=== PATIENT | female | born 2000 | race Caucasian/White ===

== ENCOUNTER 2021-06-02 11:42 | Emergency (ER) | payer OTHER, SELFPAY ==
--- NOTE | ~2021-06-02 | XR_ITS ---
EXAMINATION: XR chest 2V EXAM DATE: 06/02/2021 12:38 INDICATION: Heart palpitations. TECHNIQUE: Frontal and lateral projections of the chest obtained and reviewed. There is no prior linda dy for comparison. FINDINGS: The lungs are clear. There are no pleural effusions. The cardiomediastinal silhouette is within normal limits. There is no pneumothorax suspected. The bones and soft tissues are unremarkab le. Mild thoracic dextroscoliosis. IMPRESSION: No acute cardiopulmonary findings. Reviewed, dictated and finalized at location A.
[2021-06-02 11:44] VITALS: BP 152/100; PULSE 107; RESP 14; TEMP 37.2; O2SAT 100
--- NOTE | 2021-06-02 11:47 | ECG_ITS ---
Measurements Intervals [place] Rate: 92 P: 52 WA: 128 QRS: 86 QRSD: 89 T: 34 QT: 368 QTc: 456 Interpretive Statements SINUS RHYTHM WITH OCCASIONAL VENTRICULAR PREMATURE COMPLEXES LEFT ATRIAL ENLARGEMENT Electronically Signed On 06-02-2021 15:52:21 CDT by Emiliano White M.D.
[2021-06-02 12:13] LABS: Basophils Absolute Auto 0.1 K/mm3 (0.0-0.1); Basophils Percent Auto 1.2 % (0.2-1.2); Eosinophils Absolute Auto 0.1 K/mm3 (0-0.3); Eosinophils Percent Auto 1.6 % (0-4.4); Hematocrit 45.6 % (37.0-47.0); Hemoglobin 15.8 g/dL (12.0-15.0); Immature Granulocyte Absolute 0.01 K/mm3 (0.00-0.031); Immature Granulocyte Percent A 0.2 % (0-0.5); Lymphocytes Percent Auto 35.4 % (18.3-44.2); Mean Corpuscular HGB Conc 34.6 g/dl (32-36); Mean Corpuscular Hemoglobin 29.8 pg (26-34); Mean Corpuscular Volume 85.9 fl (80-100); Mean Platelet Volume 9.7 fl (7.4-10.4); Monocytes Absolute Auto 0.5 K/mm3 (0.1-0.6); Monocytes Percent Auto 9.1 % (2.6-8.5); Neutrophils Absolute Auto 2.7 K/mm3 (1.3-6.7); Neutrophils Percent Auto 52.5 % (45.5-73.1); Platelet Count Result 267 k/mm3 (150-375); Red Blood Count 5.31 M/mm3 (4.2-5.4); Red Cell Distribution Width 12.5 % (11.5-14.5); White Blood Count 5.1 K/mm3 (4.5-10.0)
[2021-06-02 12:23] LABS: Alanine Aminotransferase 19 U/L (4-35); Albumin Level 4.5 g/dL (3.7-5.6); Alkaline Phosphatase 58 U/L (45-116); Anion Gap 6 mmol/L (8-16); Aspartate Amino Transferase 29 U/L (14-36); Bilirubin,Total 0.7 mg/dL (0.2-1.3); Blood Urea Nitrogen 12 mg/dL (8-21); Calcium 9.2 mg/dL (8.9-10.7); Carbon Dioxide 25 mmol/L (22-30); Chloride 104 mmol/L (98-107); Estimated CRCL calculation 100 ml/min; Estimated Glomerular Filt Rate > 60; Glucose 88 mg/dL (65-110); Sodium 135 mmol/L (134-143)
[2021-06-02 12:35] LABS: Troponin I < 0.012 ng/mL (0.000-0.034)
[2021-06-02] MEDS: SODIUM CHLORIDE 0.9% IV 1,000 ML 999 ML IV CONT (12:46)
[2021-06-02 13:24] VITALS: BP 111/70; PULSE 87; RESP 18; O2SAT 100
--- NOTE | 2021-06-02 13:41 | ED.ARRPALP ---
HPI - Arrhythmia/Palpitations General Chief Complaint: Arrhythmia/Palpitations Stated Complaint: feeling palpitations Time Seen by Provider: 06/02/21 12:02 Source: patient, family and RN notes reviewed Mode of arrival: ambulatory Limitations: no limitations History of Present Illness HPI narrative: This is a 20 year old female with history of SVT who presents for evaluation of palpitations. Patient is complaining of heart fluttering today. She feels symptoms for a brief second and then it resolves. She denies associated chest pain, shortness of breath, dizziness, diaphoresis, nausea, vomiting, cough or fever. She denies signs of DVT. She denies drinking caffeine or stimulants. She also denies exertional symptoms. Related Data Allergies Allergy/AdvReac Type Severity Reaction Status Date / Time No Known Allergies Allergy Verified 06/02/21 11:50 Review of Systems Review of Systems: All systems reviewed & are unremarkable except as noted in HPI and below Constitutional: Constitutional: Denies chills, Denies fever(s) and Denies weakness ENT: Denies dizziness Cardiovascular: Cardiovascular: Denies chest pain, Denies radiating jaw, neck or arm pain and Denies slow heart rate Respiratory: Respiratory: Denies cough, Denies dyspnea and Denies wheezing Gastrointestinal: Gastrointestinal: Denies abdominal pain, Denies diarrhea, Denies nausea and Denies vomiting PMFSH Past Medical History Medical History Anxiety Surgical History Surgical History History of third molar tooth extraction Family History Family History Father Diabetes mellitus Mother Thyroid disease Grandparent Heart disease Cancer Grandparent Breast cancer Social History Social History Smoking status: Never smoker Alcohol intake: never Substance use: never Exam Narrative: GENERAL: Well-appearing, well-nourished, and in no acute distress. HEAD: Normocephalic, atraumatic EYES: PERRLA and EOMI, conjunctiva clear without discharge EARS: TM's clear bilaterally without erythema or dullness NOSE: Nares clear, no rhinorrhea or epistaxis THROAT:Mucous membranes moist, Oropharynx normal without erythema, exudate, peritonsillar swelling or fluctuance NECK: Supple, without lymphadenopathy or mass RESPIRATORY: No respiratory distress, Airway patent, Respirations non-labored, Clear to auscultation without rales, rhonchi or wheeze HEART: Regular rate and rhythm. No murmur heard. Normal peripheral pulses. ABDOMEN: Soft, nontender, nondistended, normal active bowel sounds. No masses. No rebound or guarding, No organomegaly. EXTREMITIES: No edema, normal strength with full range of motion. SKIN: Warm, dry, normal color without rash NEURO: Alert and oriented x3. CN 2-12 grossly intact. No focal deficits. PSYCH: Normal mood and affect. Course Reevaluation(s) Reevaluation #1: I Discussed with patient and father labs are unremarkable. She will get holter monitor placed in ER and follow up with DR. Rodgers. Patient is having PVCs that are causing her palpitations. She appears otherwise stable. I spoke with Dr. Rodgers who agrees to follow up with patient. Date: 06/02/21 Time: 13:58 Vital Signs Vital signs: Vital Signs Temperature 98.9 F 06/02/21 11:44 Pulse Rate 107 H 06/02/21 11:44 Respiratory Rate 14 06/02/21 11:44 Blood Pressure 152/100 H 06/02/21 11:44 Pulse Oximetry 100 06/02/21 11:44 Temperature 98.9 F 06/02/21 11:44 Pulse Rate 104 H 06/02/21 15:00 Respiratory Rate 20 06/02/21 15:00 Blood Pressure 120/67 06/02/21 15:00 Pulse Oximetry 99 06/02/21 15:00 MDM - Arrhythmia/Palpitations Differential Diagnosis Differential diagnosis: Likely palpitations, an
--- NOTE | 2021-06-02 14:38 | PC.NURSE ---
1438-CALLED TO CARDIOLOGY X 5 EXTENSIONS WITH NO ANSWER. LEFT THREE MESSAGES. UPDATE TO PROVIDER.
[2021-06-02 15:00] VITALS: BP 120/67; PULSE 104; RESP 20; O2SAT 99
--- NOTE | 2021-06-06 12:32 | WPDHOLTEREM ---
Holter/Event Monitor Holter/Event Monitor Date of procedure: 06/02/21 Holter/Event Procedure: 48 Hr Holter Monitor Indications: Palpitations Conclusion: 1. 48 hour hour holter monitor on 06/02/21. 2. Underlying rhythm is sinus rhythm. HR range 53-158 bpm; average HR 82 bpm. 3. There are 5 premature supraventricular complexes. No supraventricular tachycardia. 4. There are 1,899 premature ventricular complexes and 3 ventricular trigeminy. No ventricular tachycardia. 5. No sinoatrial or atrioventricular blocks. No significant pauses greater than 2 seconds. 6. No symptoms available for correlation.
== END 2021-06-02 15:10 | disposition home or self-care (01) ==
PROVIDERS: Emergency Medicine; Emergency Provider General Practice; PCP Physician Assistant
DX: R00.2 Palpitations (principal); I49.3 Ventricular premature depolarization; F41.9 Anxiety disorder, unspecified
CPT/HCPCS: 36415; 71046; 80053; 83735; 84443; 84484; 85025; 93005; 93225; 93226; 96360; 99284; J7030

== ENCOUNTER 2021-06-29 11:11 | Emergency (ER) | payer OTHER, SELFPAY ==
[2021-06-29 11:33] VITALS: BP 122/89; PULSE 99; RESP 12; TEMP 37; O2SAT 100
--- NOTE | 2021-06-29 12:00 | ED.URI ---
HPI - URI/Sore Throat General Chief Complaint: Upper Respiratory Infection Stated Complaint: sore throat Time Seen by Provider: 06/29/21 11:40 Source: patient, RN notes reviewed and old records reviewed Mode of arrival: ambulatory Limitations: no limitations History of Present Illness HPI Narrative: 21 year old female who presents to express care with complaints of sore throat since yesterday, minimal cough noted, some sinus drainage and congestion. Patient reports that she does have seasonal allergies and takes nasal spray and antihistamines daily for her symptoms. Patient denies any known fevers, chills or sweats, denies any body aches, has had COVID vaccinations and also flu shot this season. 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 MD elicited complaint: sore throat, rhinorrhea and nasal congestion Pertinent past history: seasonal allergies Onset (ago): day(s) (1) Related Data Allergies Allergy/AdvReac Type Severity Reaction Status Date / Time No Known Allergies Allergy Verified 06/29/21 11:36 Review of Systems Review of Systems: CONSTITUTIONAL: Denies fever, chills, or sweats. EYES: Denies visual changes, redness, or discharge. ENT: Denies rhinorrhea, congestion, sore throat, no otalgia. CARDIOVASCULAR: Denies chest pain, palpitations, or edema. RESPIRATORY: Positive for cough denies dyspnea. GASTROINTESTINAL: Denies abdominal pain, nausea, vomiting, or diarrhea. GENITOURINARY: Denies dysuria or hematuria. SKIN: Denies rash or itching. MUSCULOSKELETAL: Denies back pain, joint pain, or myalgia. NEUROLOGIC: Denies headache, numbness, or weakness. PSYCHIATRIC: Positive history of anxiety or depression. All systems reviewed & are unremarkable except as noted in HPI and below PMFSH Past Medical History Medical History (Updated 06/29/21 @ 12:24 by Bonnie Ladd NP) Anxiety SVT (supraventricular tachycardia) Surgical History Surgical History History of third molar tooth extraction Family History Family History Father Diabetes mellitus Mother Thyroid disease Grandparent Heart disease Cancer Grandparent Breast cancer Social History Social History Smoking status: Never smoker Alcohol intake: never Substance use: never Comments At time of signature, agree with nursing past medical, surgical, social and family history. There is no relevant family history pertinent to the presenting complaint Exam Narrative: GENERAL: Well-appearing, well-nourished, and in no acute distress. HEAD: Normocephalic, atraumatic. EYES: PERRLA and EOMI. ENT: Nares red with clear rhinorrhea no epistaxis. Mucous membranes moist.TM's normal with good light reflex, throat with redness no lessions or exudates or tonsil swelling, post nasal drainage noted NECK: Supple.no lymphadenopathy CHEST: Clear to auscultation. No respiratory distress. some coughing, SAO2 100% on room air HEART: Regular rate and rhythm. No murmur heard. Normal peripheral pulses. ABDOMEN: Soft, nontender, nondistended, normal active bowel sounds. EXTREMITIES: Normal range of motion. No edema. SKIN: Warm, dry, no rash. NEURO: No focal deficits. Alert and oriented x3. Course Course Level of Care: Express Care Visit Vital Signs Vital signs: Vital Signs Temperature 37.0 C 06/29/21 11:33 Pulse Rate 99 06/29/21 11:33 Respiratory Rate 12 06/29/21 11:33 Blood Pressure 122/89 06/29/21 11:33 Pulse Oximetry 100 06/29/21 11:33 Temperature 37.0 C 06/29/21 11:33 Pulse Rate 99 06/29/21 11:33 Respiratory Rate 12 06/29/21 11:33 Blood Pressure 122/89 06/29/21 11:33 Pulse Oximetry 100 06/29/21 11:33 MDM - URI/Sore Throat Differential Diagnosis Differential diagno
== END 2021-06-29 12:30 | disposition home or self-care (01) ==
PROVIDERS: Emergency Provider Registered Nurse; PCP Physician Assistant
DX: J02.9 Acute pharyngitis, unspecified (principal); J06.9 Acute upper respiratory infection, unspecified; Z20.822 Contact with and (suspected) exposure to COVID-19
CPT/HCPCS: 87081; 87426; 87880; 99213; C9803; G0463

== ENCOUNTER 2024-07-18 16:08 | Outpatient (CLI) | payer BC, SELFPAY ==
--- NOTE | ~2024-07-18 | XR_ITS ---
EXAMINATION: XR chest 2V Exam Date/Time: 07/18/2024 16:12 CDT HISTORY: J06.9 - Acute upper respiratory infection, unspecified Comparison: 06/02/2021. RESULT: Lines, tubes, and devices: None. Lungs and pleura: Clear. Cardiomediastinal silhouette: Stable. Other: No acute osseous or upper abdominal finding. Mild scoliosis. IMPRESSION: No acute cardiopulmonary process. Reviewed, dictated and finalized at location K.
== END 2024-07-18 16:09 | disposition home or self-care (01) ==
LOC: MICIMG 16:09
PROVIDERS: PCP Internal Medicine; Visit Provider Internal Medicine
DX: J06.9 Acute upper respiratory infection, unspecified (principal)
CPT/HCPCS: 71046